=== PATIENT | female | born 1985 | race Two or more races ===

== ENCOUNTER 2023-11-14 10:15 | Emergency (ER) | payer MEDICAID, SELFPAY ==
[2023-11-14 11:24] VITALS: BP 113/68; PULSE 68; RESP 16; TEMP 36.1; O2SAT 100; BMI 24.6
--- NOTE | 2023-11-14 11:37 | ED_ITS ---
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 Reports noticing an intermittent red rash to the skin of her arms/legs and her face over the last week. She has been taking Zyrtec daily without relief of symptoms. Denies new lotions, soaps, detergents. Denies known tick or insect bites. No recent exposure to plants. Denies any new medications besides the Zyrtec. Denies recent antibiotic use. She has concerned that the rash is related to anxiety/stress. Reports increased stressors over the last week related to planning her child's birthday green party. She has not been diagnosed with anxiety and does not currently take medication for this. She does not currently have a primary care provider. Vaccinations up-to-date. Denies fever, chills, nausea or vomiting, pain, hematuria, joint pain/swelling. [employer] labor economics professor utilized throughout visit to communicate with patient. Related Data Previous Rx's ?Medication ?Instructions ?Recorded diphenhydramine HCl 25 mg capsule 25 mg PO BEDTIME PRN itching #10 11/14/23 (Benadryl) caps lorazepam 1 mg tablet (Ativan) 1 mg PO Q6-8H PRN anxiety #10 tabs 11/14/23 prednisone 20 mg tablet 20 mg PO DAILY 5 days #5 tabs 11/14/23 Allergies Allergy/AdvReac Type Severity Reaction Status Date / Time No Known Allergies Allergy Verified 11/14/23 11:38 Review of Systems 2 Review of Systems: Constitutional: No fever, chills, fatigue, night sweats, weight changes ENT/Mouth: No ear pain, hearing loss, nasal congestion, sinus pain, rhinorrhea, sore throat Eyes: No eye pain, swelling, redness, vision changes, discharge Cardio: No chest pain, palpitations, [place], orthopnea, peripheral edema Pulm: No SOB, cough, sputum, wheezing, dyspnea, hemoptysis GI: No nausea, vomiting, hematemesis, abdominal pain, diarrhea, constipation, hematochezia, melena : No irregular bleeding, dysuria, frequency, urgency, hesitancy, hematuria, flank pain, urinary flow changes, urinary incontinence or retention MSK: No back pain, neck pain, joint pain, myalgias Skin: No lesions, +rash Neuro: No weakness, numbness, paresthesias, LOC, dizziness, headache Psych: No anxiety/panic, depression, SI/HI, AH/VH All other systems reviewed and are negative. [facility] Past Medical History Attestation statement: The following information was validated with the patient. Source: old records reviewed and nursing notes reviewed Social History Social History Advance Directives: No Advance Directives Information Provided: Yes Do you have a plan to hurt others: No Plan Physical Exam ED Vital Signs: Vital Signs - 24 hr 11/14/23 11:24 11/14/23 14:00 11/14/23 16:23 Temperature 97 F 98.0 F 98.0 F Pulse Rate 68 69 63 Respiratory Rate 16 18 Blood Pressure 113/68 124/80 117/66 Pulse Oximetry 100 100 100 Oxygen Delivery Method Room Air Room Air Room Air BMI result Body Mass Index 24.6 Vital signs stable. Const General: cooperative, healthy appearing, comfortable and no acute distress Orientation/consciousness: patient oriented x3 Limitations: no limitations [facility] Head: Yes normal to inspection Ears: hearing grossly normal bilaterally General nose exam: Normal external nose present Eyes General: appearance normal, both eyes and all related structures Pupils: Equal, round and reactive pupils present Neck Neck: Yes normal visual inspection Resp Effort & Inspection: normal respiratory effort Auscultation: clear to auscultation bilaterally Cardio Rate: regular rate Rhythm: regular rhythm Heart sounds: S1 normal heart sound present and S2 normal heart sound present Peripheral pulses: Peripheral pulses 2+ throughout GI Other: abdomen soft, ND/NT, no rebound or guarding, normoactive bsx4. Inspection: Yes normal to inspection General: Yes no CVA tenderness Back/Spine/Pelvis Back: no CVA tenderness Skin Other: + Erythematous papular rash noted to extremities. No sloughing. Spares palms, soles, web spaces and mucous membranes. Nondermatomal pattern. No target lesions. No petechiae. No ecchymoses. General skin exam: no rashes or lesions noted Neuro General: patient oriented x3, gait normal and moves all extremities Cranial nerves: Yes CN's II-XII intact bilaterally and Yes Equal, round and reactive pupils present Extrem General: Yes normal to inspection and Yes full ROM Course Course Course Narrative: RME performed by Adelia Chang PA-C. Patient is a 38 year old assigned female at presenting to the emergency department with a rash and facial swelling for 7 days. Patient states that this all started as she got more stressed about planning her [place] birthday green party. Detailed physical exam and review of systems are deferred to the president trust company. Labs ordered. Patient placed back in the waiting room pending room availability and results. Reevaluation(s) Reevaluation #1: 150-- CBC with slight leukocytosis to 11.8, unknown significance. There is no left shift. H&h 14.5/41.6. Chemistry without acute electrolyte abnormality requiring intervention. Normal renal and liver function. Etiology of rash unclear. no concern for coag disorder. She received Pepcid, Benadryl and Decadron in the ED. will discharge her home with Benadryl and prednisone for rash. I will also send a few tabs of Ativan to pharmacy for anxiety. She does not currently have a PCP so referral has been provided to her. She is agreeable disposition. Patient has remained stable throughout ED visit today. Discussed worrisome signs and symptoms and when to return to the ED. All questions answered at this time. Patient is agreeable with disposition and stable for discharge. Medications Administered Discontinued Medications Generic Name Dose Route Start Last Admin Trade Name James PRN Reason Stop Dose Admin Dexamethasone Sodium Phosphate 10 mg 11/14/23 15:29 11/14/23 15:49 Dexamethasone Sod Phosphate 10 Mg/Ml Vial IVPUSH 11/14/23 15:30 10 mg ONCE ONE Administration Diphenhydramine HCl 50 mg 11/14/23 15:29 11/14/23 15:49 Diphenhydramine Hcl 25 Mg Capsule PO 11/14/23 15:30 50 mg ONCE ONE Administration Famotidine 20 mg 11/14/23 15:29 11/14/23 15:49 Famotidine 20 Mg Tablet PO 11/14/23 15:30 20 mg ONCE ONE Administration Medical Decision Making Medical Decision Making MDM Narrative: 38 year old female with no significant pmhx presents to the ED today for evaluation of itchy rash to body/face x8 days. Vital signs stable, afebrile. She is nontoxic-appearing and in no acute distress. Erythematous papular rash noted to extremities. No sloughing. Spares palms, soles, web spaces and mucous membranes. Nondermatomal pattern. No target lesions. skin warm/dry/intact. abd soft, ND/NT. no joint swelling. Differential diagnosis includes stressed induced rash, anxiety, contact dermatitis. Lower suspicion for medication reaction. Unlikely herpes zoster, herpes simplex, SJS/TEN, Lyme disease, tick borne illness, hand/foot/mouth disease. Plan for basic labs, medication, and re-evaluation. Differential Diagnosis Differential Diagnoses: The differential diagnosis associated with the presentation includes As above Admission/Observation Not indicated Lab Data [facility] Lab Attestation statement: I reviewed the patient's lab results. As above 11/14/23 11:58 11/14/23 11:58 Labs: Lab Results 11/14/23 Range/Units 11:58 WBC 11.8 H (4.8-10.8) X10*3/uL RBC 4.68 (4.20-5.50) X10*6/uL Hgb 14.5 (12.0-16.0) g/dl Hct 41.6 (37.0-47.0) % MCV 88.9 (80.0-98.0) fL MCH 31.0 (27.0-33.0) pg MCHC 34.9 (31.0-35.0) g/dl RDW 12.7 (11.0-16.0) % Plt Count 186 (160-400) X10*3/uL MPV 10.6 (9.4-12.3) fL Immature Gran % (Auto) 0.3 (0.0-0.4) % Neut % (Auto) 63.6 (45-73) % Lymph % (Auto) 26.2 (20-40) % Cottle % (Auto) 8.5 (2-11) % Eos % (Auto) 1.3 (0-4) % Baso % (Auto) 0.1 (0-2) % Lymph # (Auto) 3.1 (1.2-4.9) X10*3/uL Cottle # (Auto) 1.0 (0.1-1.2) X10*3/uL Eos # (Auto) 0.2 (0.0-0.4) X10*3/uL Baso # (Auto) 0.0 (0.0-0.2) X10*3/uL Abs Immat Gran (auto) 0.04 H (0.00-0.03) X10*3/uL Absolute Neuts (auto) 7.5 (2.0-8.3) x10*3/uL Absolute Nucleated RBC 0.000 (0.0-0.012) X10*3/uL Nucleated RBC % (auto) 0.0 (0.0-0.2) /100WBC Sodium 138 (135-145) mmol/L Potassium 4.2 (3.3-5.1) mmol/L Chloride 105 (96-108) mmol/L Carbon Dioxide 26 (22-29) mmol/L Anion Gap 11 L (12-20) BUN 13 (9-16) mg/dL Creatinine 0.83 (0.5-1.4) mg/dL Estim Creat Clear Calc 91.7 Estimated GFR > 60 Random Glucose 108 (60-115) mg/dL Calcium 9.6 (8.4-10.2) mg/dL Magnesium 2.1 (1.6-2.6) mg/dL Total Bilirubin 0.7 (0.0-1.0) mg/dL AST 16 (5-31) U/L ALT 30 (0-31) U/L Alkaline Phosphatase 98 (39-117) U/L Total Protein 7.6 (6.5-8.0) g/dL Albumin 4.3 (3.5-5.0) g/dL Independent Historian Clinical information obtained from an independent historian. History obtained from or confirmed by: Spouse () External Record Review External record reviewed: Inpatient record Prescription Management I considered prescription management with: Other (Prednisone, Benadryl, Ativan) Social Determinants Patient?s care significantly limited by Social Determinants of Health including: Other Social Determinant of Health Critical Care Time Critical Care Time Critical Care Time: No Discharge Plan Discharge Clinical Impression: Rash, Anxiety Patient Disposition: Home, Self-Care Instructions: Acute Rash (ED) Additional Instructions: Your labs today are reassuring. The etiology of your rash is unclear at this time. Benadryl has been sent to your pharmacy. You may take this as needed every 8 hours to help with itching. Prednisone as a steroid that has been sent to your pharmacy. You were given a dose of steroids in the ED today so please start prednisone tomorrow. Ativan has been sent to your pharmacy. You may take 1 tablet every 8 hours as needed for anxiety. If you need a refill, please discuss this with your primary care provider. If you do not have a PCP, a referral has been provided to you. You have also been provided with a dermatology referral. If your rash persists, you may call them to establish care. Return with new or worsening symptoms. In the case of an emergency call 911. Prescriptions: New lorazepam [Ativan] 1 mg tablet 1 mg PO Q6-8H PRN (Reason: anxiety) Qty: 10 0RF diphenhydramine HCl [Benadryl] 25 mg capsule 25 mg PO BEDTIME PRN (Reason: itching) Qty: 10 0RF prednisone 20 mg tablet 20 mg PO DAILY 5 Days Qty: 5 0RF Referrals: [facility] [place] [facility] [place]Provider Group] [facility] [place] [facility]Provider Group] [facility] [place] [facility] [Provider Group] Trudi Kumar PA-C [Physician Ecg Technician] - Interventions: ED Discharge Assessment Last Done: 11/14/23 16:23 Discharge Date/Time: 11/14/23 16:25 Print Language: [place]
[2023-11-14 12:05] LABS: MANUAL DIFF FLAG NO
[2023-11-14 12:08] LABS: Basophils Percent Auto 0.1 % (0-2); Eosinophils Absolute Auto 0.2 X10*3/uL (0.0-0.4); Eosinophils Percent Auto 1.3 % (0-4); Hematocrit 41.6 % (37.0-47.0); Hemoglobin 14.5 g/dl (12.0-16.0); Imm Gran Abs Auto 0.04 X10*3/uL (0.00-0.03); Imm Gran Pct Auto 0.3 % (0.0-0.4); Lymphocytes Absolute Auto 3.1 X10*3/uL (1.2-4.9); Lymphocytes Percent Auto 26.2 % (20-40); Mean Corpuscular HGB Conc 34.9 g/dl (31.0-35.0); Mean Corpuscular Volume 88.9 fL (80.0-98.0); Mean Platelet Volume 10.6 fL (9.4-12.3); Monocytes Percent Auto 8.5 % (2-11); Neutrophils Absolute Auto 7.5 x10*3/uL (2.0-8.3); Neutrophils Percent Auto 63.6 % (45-73); Platelet Count 186 X10*3/uL (160-400); Red Blood Count 4.68 X10*6/uL (4.20-5.50); Red Cell Distribution Width 12.7 % (11.0-16.0); White Blood Count 11.8 X10*3/uL (4.8-10.8)
[2023-11-14 12:24] LABS: Alanine Aminotransferase 30 U/L (0-31); Albumin Level 4.3 g/dL (3.5-5.0); Alkaline Phosphatase 98 U/L (39-117); Anion Gap 11 (12-20); Aspartate Amino Transferase 16 U/L (5-31); Bilirubin Total 0.7 mg/dL (0.0-1.0); Blood Urea Nitrogen 13 mg/dL (9-16); Calcium 9.6 mg/dL (8.4-10.2); Carbon Dioxide 26 mmol/L (22-29); Chloride 105 mmol/L (96-108); Creatinine Clr Calc Pharmacy 91.7; Estimated Glomerular Filt Rate > 60; Glucose Random 108 mg/dL (60-115); Magnesium 2.1 mg/dL (1.6-2.6); Potassium 4.2 mmol/L (3.3-5.1); Sodium 138 mmol/L (135-145); Total Protein 7.6 g/dL (6.5-8.0)
[2023-11-14 14:00] VITALS: BP 124/80; PULSE 69; TEMP 36.7; O2SAT 100
[2023-11-14] MEDS: diphenhydrAMINE HCL 25 MG CAPSULE 50 MG PO (15:49)
[2023-11-14] MEDS: dexAMETHasone sod phosphate 10 MG/ML VIAL IVPUSH (15:49)
[2023-11-14] MEDS: Famotidine 20 MG TABLET PO (15:49)
--- NOTE | 2023-11-14 15:52 | PC.NURSE ---
pt medicated per order
[2023-11-14 16:23] VITALS: BP 117/66; PULSE 63; RESP 18; TEMP 36.7; O2SAT 100
== END 2023-11-14 16:25 | disposition home or self-care (01) ==
PROVIDERS: Physician Assistant Medical; Emergency Provider Emergency Medicine
DX: R21 Rash and other nonspecific skin eruption (principal); F41.9 Anxiety disorder, unspecified
CPT/HCPCS: 36415; 80053; 83735; 85025; 99283; J1100